=== PATIENT | male | born 1990 | race African-American/Black ===

== ENCOUNTER 2022-09-16 00:06 | Inpatient (IN) | payer MEDICAID ==
[~2022-09-16] VITALS: Ht 180.3 cm; Wt 76.5 kg
[2022-09-16] MEDS ORDERED: LORazepam 2 MG TABLET PO PRN (01:00)
[2022-09-16] MEDS ORDERED: ZOLPIDEM TARTRATE 10 MG TABLET PO PRN (01:00)
[2022-09-16] MEDS ORDERED: HALOPERIDOL 5 MG TABLET PO PRN (01:00)
[2022-09-16 04:22] VITALS: BP 121/85
[2022-09-16] MEDS ORDERED: PNEUMOCOCCAL VACCINE POLYVALENT 0.5 ML VIAL [PPSV23] IM. ONE (05:15)
[2022-09-16 08:10] VITALS: BP 117/64
[2022-09-16 20:27] VITALS: BP 120/67
[2022-09-17 08:36] VITALS: BP 108/69
[2022-09-17] MEDS ORDERED: MAGNESIUM HYDROXIDE SUSPENSION 30 ML UDCUP PO PRN (15:00)
[2022-09-17] MEDS ORDERED: NALTREXONE HCL 50 MG TABLET PO ONE (15:00)
[2022-09-17] MEDS ORDERED: PROMETHAZINE HCL 25 MG TABLET PO PRN ×2 (15:00)
[2022-09-17] MEDS ORDERED: PARoxetine HCL 20 MG TABLET PO ONE (15:00)
[2022-09-17] MEDS ORDERED: QUEtiapine FUMARATE 25 MG TABLET PO ONE (15:00)
[2022-09-17] MEDS ORDERED: TUBERCULIN, PURIFIED PROTEIN DERIVATIVE 5 TU/0.1 ML SYRINGE ID ONE (15:00)
[2022-09-17] MEDS ORDERED: ACETAMINOPHEN 325 MG TABLET PO PRN (15:00)
[2022-09-17] MEDS ORDERED: HydrOXYzine PAMOATE 50 MG CAPSULE PO PRN (15:00)
[2022-09-17] MEDS ORDERED: MAG HYDROX/AL HYDROX/SIMETH ES 30 ML SUSPENSION UDCUP PO PRN (15:00)
[2022-09-17] MEDS ORDERED: LOPERAMIDE HCL 2 MG CAPSULE PO PRN (15:00)
[2022-09-17] MEDS ORDERED: GuaiFENesin/D-METHORPHAN [SUGAR-FREE] 200-20MG/10 ML SYRUP UDCUP PO PRN (15:00)
[2022-09-17] MEDS: QUEtiapine FUMARATE 25 MG TABLET PO SCH (16:09)
[2022-09-17] MEDS: THIAMINE 100 MG TABLET PO SCH (16:09)
[2022-09-17 20:11] VITALS: BP 118/79
[2022-09-17] MEDS: MELATONIN 5 MG TABLET PO SCH (20:45)
[2022-09-17] MEDS: TraZODone HCL 100 MG TABLET PO SCH (20:45)
[2022-09-17] MEDS ORDERED: QUEtiapine FUMARATE 100 MG TABLET PO SCH (21:00)
[2022-09-18 08:09] VITALS: BP 132/76
[2022-09-18] MEDS: OMEGA-3/DHA/EPA/FISH OIL 1,000 MG CAPSULE PO SCH (09:23)
[2022-09-18] MEDS: FOLIC ACID 1 MG TABLET PO SCH (09:24)
[2022-09-18] MEDS: THIAMINE 100 MG TABLET PO SCH ×2 (09:24→16:37)
[2022-09-18] MEDS: MULTIVITAMINS WITH MINERALS, THERAPEUTIC TABLET PO SCH (09:24)
[2022-09-18] MEDS: PARoxetine HCL 20 MG TABLET PO SCH (09:24)
[2022-09-18] MEDS: NALTREXONE HCL 50 MG TABLET PO SCH (09:25)
[2022-09-18] MEDS: QUEtiapine FUMARATE 25 MG TABLET PO SCH ×3 (09:25→16:37)
[2022-09-18] MEDS: MELATONIN 5 MG TABLET PO SCH (20:03)
[2022-09-18] MEDS: TraZODone HCL 100 MG TABLET PO SCH (20:03)
[2022-09-18 20:25] VITALS: BP 120/72
[2022-09-18] MEDS ORDERED: QUEtiapine FUMARATE 200 MG TABLET PO SCH (21:00)
[2022-09-19 08:05] VITALS: BP 109/62
[2022-09-19] MEDS: THIAMINE 100 MG TABLET PO SCH ×2 (08:16→17:10)
[2022-09-19] MEDS: FOLIC ACID 1 MG TABLET PO SCH (08:16)
[2022-09-19] MEDS: OMEGA-3/DHA/EPA/FISH OIL 1,000 MG CAPSULE PO SCH (08:16)
[2022-09-19] MEDS: NALTREXONE HCL 50 MG TABLET PO SCH (08:16)
[2022-09-19] MEDS: MULTIVITAMINS WITH MINERALS, THERAPEUTIC TABLET PO SCH (08:16)
[2022-09-19] MEDS: PARoxetine HCL 20 MG TABLET PO SCH (08:16)
[2022-09-19] MEDS: QUEtiapine FUMARATE 25 MG TABLET PO SCH ×3 (08:17→17:10)
[2022-09-19] MEDS: TraZODone HCL 100 MG TABLET PO SCH (20:07)
[2022-09-19] MEDS: QUEtiapine FUMARATE 200 MG TABLET PO SCH (20:07)
[2022-09-19] MEDS: MELATONIN 5 MG TABLET PO SCH (20:07)
[2022-09-19 20:11] VITALS: BP 110/64
[2022-09-20] MEDS: PARoxetine HCL 10 MG TABLET PO SCH (08:03)
[2022-09-20] MEDS: QUEtiapine FUMARATE 25 MG TABLET PO SCH ×3 (08:03→16:43)
[2022-09-20] MEDS: THIAMINE 100 MG TABLET PO SCH ×2 (08:03→16:43)
[2022-09-20] MEDS: FOLIC ACID 1 MG TABLET PO SCH (08:03)
[2022-09-20] MEDS: OMEGA-3/DHA/EPA/FISH OIL 1,000 MG CAPSULE PO SCH (08:03)
[2022-09-20] MEDS: MULTIVITAMINS WITH MINERALS, THERAPEUTIC TABLET PO SCH (08:03)
[2022-09-20 08:04] VITALS: BP 105/66
[2022-09-20] MEDS: NALTREXONE HCL 50 MG TABLET PO SCH (08:05)
[2022-09-20] MEDS: MELATONIN 5 MG TABLET PO SCH (20:22)
[2022-09-20] MEDS: TraZODone HCL 100 MG TABLET PO SCH (20:22)
[2022-09-20] MEDS: QUEtiapine FUMARATE 200 MG TABLET PO SCH (20:22)
[2022-09-21 07:41] LABS: BASOPHILS % (AUTO) 0.9 % (0.0-2.0); EOSINOPHILS % (AUTO) 4.6 % (1.0-6.0); HEMATOCRIT 42.3 % (41-53); HEMOGLOBIN 14.2 g/dL (13.5-17.5); LYMPHOCYTES # (AUTO) 2.2 K/uL (1.0-4.8); LYMPHOCYTES % (AUTO) 57.5 % (22.0-44.0); MEAN CORPUSCULAR HEMOGLOBIN 30.8 pg (26.0-34.0); MEAN CORPUSCULAR HGB CONC 33.7 G/dL (31.0-37.0); MEAN CORPUSCULAR VOLUME 91 fL (80-100); MONOCYTES # (AUTO) 0.4 K/uL (0.1-1.0); MONOCYTES % (AUTO) 9.7 % (2.0-9.0); NEUTROPHILS # (AUTO) 1.1 K/uL (1.8-7.7); NEUTROPHILS % (AUTO) 27.3 % (40.0-70.0); PLATELET COUNT (AUTO) 203 K/uL (150-450); RED BLOOD CELL COUNT(AUTO) 4.63 MIL/uL (4.50-5.90)
[2022-09-21 07:50] LABS: HEMOGLOBIN A1C 5.1 % (3.8-5.6)
[2022-09-21] MEDS: OMEGA-3/DHA/EPA/FISH OIL 1,000 MG CAPSULE PO SCH (08:04)
[2022-09-21] MEDS: NALTREXONE HCL 50 MG TABLET PO SCH (08:04)
[2022-09-21] MEDS: MULTIVITAMINS WITH MINERALS, THERAPEUTIC TABLET PO SCH (08:04)
[2022-09-21] MEDS: THIAMINE 100 MG TABLET PO SCH ×2 (08:04→16:33)
[2022-09-21] MEDS: PARoxetine HCL 10 MG TABLET PO SCH (08:04)
[2022-09-21] MEDS: QUEtiapine FUMARATE 25 MG TABLET PO SCH ×3 (08:04→16:33)
[2022-09-21] MEDS: FOLIC ACID 1 MG TABLET PO SCH (08:04)
[2022-09-21 08:05] VITALS: BP 102/63
[2022-09-21 08:10] LABS: ALANINE AMINOTRANSFERASE 37 U/L (12-78); ALBUMIN 3.5 g/dL (3.4-5.0); ALKALINE PHOSPHATASE 37 U/L (46-116); ANION GAP 4 mmol/L (8-16); ASPARTATE AMINOTRANSFERASE 21 U/L (15-37); BILIRUBIN,TOTAL 0.1 mg/dL (0.1-1.0); CALCIUM, TOTAL 8.9 mg/dL (8.8-10.5); CARBON DIOXIDE 31 mmol/L (22-29); CHLORIDE 105 mmol/L (98-107); CHOL/HDL RATIO 3.6 (4.2-7.3); CHOLESTEROL 160 mg/dL (131-200); CREATININE 1.04 mg/dL (0.60-1.30); FREE T4 (FREE THYROXINE) 0.58 ng/dL (0.76-1.46); GLOMERULAR FILTR. RATE CALC > 60 mL/min (>60); GLUCOSE,RANDOM 86 mg/dL (70-110); HDL CHOLESTEROL 44 mg/dL (40-60); LDL CHOL (CALC.) 98 mg/dL (0-130); POTASSIUM 4.5 mmol/L (3.5-5.1); SODIUM SERUM 140 mmol/L (136-145); THYROID STIMULATING HORMONE 0.86 uIU/mL (0.36-3.74); TOTAL PROTEIN, SERUM 6.4 g/dL (6.4-8.2); TRIGLYCERIDES 92 mg/dL (15-150); UREA NITROGEN, BLOOD 12 mg/dL (7-18)
[2022-09-21 11:15] LABS: GLUCOMETER DEV NAME(LOC) POC.BV
[2022-09-21 20:04] VITALS: BP 109/63
[2022-09-21] MEDS: MELATONIN 5 MG TABLET PO SCH (20:15)
[2022-09-21] MEDS: QUEtiapine FUMARATE 200 MG TABLET PO SCH (20:15)
[2022-09-21] MEDS: TraZODone HCL 100 MG TABLET PO SCH (20:15)
[2022-09-22 08:14] VITALS: BP 109/63
[2022-09-22] MEDS: OMEGA-3/DHA/EPA/FISH OIL 1,000 MG CAPSULE PO SCH (08:56)
[2022-09-22] MEDS: FOLIC ACID 1 MG TABLET PO SCH (08:56)
[2022-09-22] MEDS: NALTREXONE HCL 50 MG TABLET PO SCH (08:56)
[2022-09-22] MEDS: MULTIVITAMINS WITH MINERALS, THERAPEUTIC TABLET PO SCH (08:56)
[2022-09-22] MEDS: THIAMINE 100 MG TABLET PO SCH ×2 (08:57→16:27)
[2022-09-22] MEDS: QUEtiapine FUMARATE 25 MG TABLET PO SCH ×3 (08:57→16:27)
[2022-09-22] MEDS: PARoxetine HCL 10 MG TABLET PO SCH (08:57)
[2022-09-22 20:12] VITALS: BP 100/63
[2022-09-22] MEDS: TraZODone HCL 100 MG TABLET PO SCH (20:29)
[2022-09-22] MEDS: MELATONIN 5 MG TABLET PO SCH (20:29)
[2022-09-22] MEDS ORDERED: QUEtiapine FUMARATE 300 MG TABLET PO SCH (21:00)
[2022-09-23 08:20] VITALS: BP 107/72
[2022-09-23] MEDS ORDERED: PARoxetine HCL 20 MG TABLET PO SCH (09:00)
[2022-09-23] MEDS: MULTIVITAMINS WITH MINERALS, THERAPEUTIC TABLET PO SCH (09:25)
[2022-09-23] MEDS: THIAMINE 100 MG TABLET PO SCH ×2 (09:25→21:00)
[2022-09-23] MEDS: OMEGA-3/DHA/EPA/FISH OIL 1,000 MG CAPSULE PO SCH (09:25)
[2022-09-23] MEDS: FOLIC ACID 1 MG TABLET PO SCH ×2 (09:25→21:00)
[2022-09-23] MEDS: NALTREXONE HCL 50 MG TABLET PO SCH ×2 (09:25→21:00)
[2022-09-23] MEDS: QUEtiapine FUMARATE 25 MG TABLET PO SCH ×2 (09:25→13:26)
[2022-09-23 20:18] VITALS: BP 116/75
[2022-09-23] MEDS: PARoxetine HCL 20 MG TABLET PO SCH (21:00)
[2022-09-23] MEDS ORDERED: MULTIVITAMINS WITH MINERALS, THERAPEUTIC TABLET PO SCH (21:00)
[2022-09-23] MEDS ORDERED: OMEGA-3/DHA/EPA/FISH OIL 1,000 MG CAPSULE PO SCH (21:00)
[2022-09-23] MEDS: QUEtiapine FUMARATE 200 MG TABLET PO SCH (21:17)
[2022-09-23] MEDS: MELATONIN 5 MG TABLET PO SCH (21:17)
[2022-09-23] MEDS: TraZODone HCL 100 MG TABLET PO SCH (21:17)
[2022-09-24 08:06] VITALS: BP 104/61
[2022-09-24 20:17] VITALS: BP 119/65
[2022-09-24] MEDS: NALTREXONE HCL 50 MG TABLET PO SCH (20:32)
[2022-09-24] MEDS: QUEtiapine FUMARATE 200 MG TABLET PO SCH (20:32)
[2022-09-24] MEDS: FOLIC ACID 1 MG TABLET PO SCH (20:32)
[2022-09-24] MEDS: PARoxetine HCL 20 MG TABLET PO SCH (20:33)
[2022-09-24] MEDS: THIAMINE 100 MG TABLET PO SCH (20:33)
[2022-09-24] MEDS: TraZODone HCL 100 MG TABLET PO SCH (20:34)
[2022-09-25 08:09] VITALS: BP 109/62
[2022-09-25 20:12] VITALS: BP 114/72
[2022-09-25] MEDS: PARoxetine HCL 20 MG TABLET PO SCH (21:18)
[2022-09-25] MEDS: QUEtiapine FUMARATE 300 MG TABLET PO SCH (21:18)
[2022-09-25] MEDS: FOLIC ACID 1 MG TABLET PO SCH (21:18)
[2022-09-25] MEDS: NALTREXONE HCL 50 MG TABLET PO SCH (21:18)
[2022-09-25] MEDS: THIAMINE 100 MG TABLET PO SCH (21:19)
[2022-09-26 08:03] VITALS: BP 115/68
[2022-09-26 20:01] VITALS: BP 116/60
[2022-09-26] MEDS: FOLIC ACID 1 MG TABLET PO SCH (20:27)
[2022-09-26] MEDS: PARoxetine HCL 20 MG TABLET PO SCH (20:27)
[2022-09-26] MEDS: THIAMINE 100 MG TABLET PO SCH (20:27)
[2022-09-26] MEDS: QUEtiapine FUMARATE 300 MG TABLET PO SCH (20:27)
[2022-09-26] MEDS: NALTREXONE HCL 50 MG TABLET PO SCH (20:27)
[2022-09-26] MEDS ORDERED: GABAPENTIN 300 MG CAPSULE PO PRN (20:30)
[2022-09-26] MEDS ORDERED: ESZOPICLONE 3 MG TABLET PO PRN (20:30)
[2022-09-26] MEDS ORDERED: QUEtiapine FUMARATE 200 MG TABLET PO SCH (21:00)
[2022-09-26] MEDS ORDERED: PARoxetine HCL 20 MG TABLET PO SCH (21:00)
[2022-09-27 08:28] VITALS: BP 111/70
[2022-09-27] MEDS: QUEtiapine FUMARATE 200 MG TABLET PO SCH (20:07)
[2022-09-27] MEDS: THIAMINE 100 MG TABLET PO SCH (20:07)
[2022-09-27] MEDS: NALTREXONE HCL 50 MG TABLET PO SCH (20:07)
[2022-09-27] MEDS: PARoxetine HCL 20 MG TABLET PO SCH (20:07)
[2022-09-27 20:12] VITALS: BP 109/75
[2022-09-28 08:32] VITALS: BP 140/80
[2022-09-28] MEDS ORDERED: NALT50TA PO (10:54)
[2022-09-28] MEDS ORDERED: PARO-37 PO (10:54)
[2022-09-28] MEDS ORDERED: QUET200T30 PO (10:54)
[2022-09-28 18:46] LABS: GLUCOMETER DEV NAME(LOC) POC.BV
[2022-09-28 20:02] VITALS: BP 134/77
[2022-09-28] MEDS: NALTREXONE HCL 50 MG TABLET PO SCH (20:26)
[2022-09-28] MEDS: QUEtiapine FUMARATE 200 MG TABLET PO SCH (20:27)
[2022-09-28] MEDS: THIAMINE 100 MG TABLET PO SCH (20:27)
[2022-09-28] MEDS: PARoxetine HCL 20 MG TABLET PO SCH (20:27)
== END 2022-09-29 09:30 | disposition home or self-care (01) | DRG 751 ==
LOC: B2S 03:46
PROVIDERS: ADMIT Psychiatry & Neurology Psychiatry; ATTEND Psychiatry & Neurology Psychiatry
DX: F33.2 Major depressive disorder, recurrent severe without psychotic features (principal); G93.41 Metabolic encephalopathy; F17.200 Nicotine dependence, unspecified, uncomplicated; J44.9 Chronic obstructive pulmonary disease, unspecified; Z20.822 Contact with and (suspected) exposure to COVID-19; Z55.9 Problems related to education and literacy, unspecified; Z59.9 Problem related to housing and economic circumstances, unspecified; Z63.9 Problem related to primary support group, unspecified; Z65.3 Problems related to other legal circumstances; Z79.899 Other long term (current) drug therapy
CPT/HCPCS: 80053; 80061; 83036; 84439; 84443; 85025; 86592; Q9967

== ENCOUNTER 2022-11-04 23:05 | Inpatient (IN) | payer MEDICAID ==
[~2022-11-04] VITALS: Ht 167.6 cm; Wt 77.4 kg
[~2022-11-04 23:05] MED LIST: NALT50TA PO; PARO-37 PO; QUET200T30 PO
[2022-11-05] MEDS ORDERED: ZOLPIDEM TARTRATE 10 MG TABLET PO PRN (00:15)
[2022-11-05] MEDS ORDERED: HALOPERIDOL 5 MG TABLET PO PRN (00:15)
[2022-11-05] MEDS ORDERED: LORazepam 2 MG TABLET PO PRN (00:15)
[2022-11-05 01:56] VITALS: BP 136/73
[2022-11-05] MEDS ORDERED: ONDANSETRON HCL 4 MG TABLET PO PRN (06:45)
[2022-11-05] MEDS ORDERED: GuaiFENesin/D-METHORPHAN [SUGAR-FREE] 200-20MG/10 ML SYRUP UDCUP PO PRN (06:45)
[2022-11-05] MEDS ORDERED: NICOTINE 14 MG/24 HOUR PATCH TD PRN (06:45)
[2022-11-05] MEDS ORDERED: PETROLATUM,WHITE 28 GM JELLY TP PRN (06:45)
[2022-11-05] MEDS ORDERED: ALBUTEROL SULFATE HFA 90 MCG/PUFF 8 GM INHALER IH PRN (06:45)
[2022-11-05] MEDS ORDERED: DOCUSATE SODIUM 100 MG CAPSULE PO PRN (06:45)
[2022-11-05] MEDS ORDERED: IBUPROFEN 400 MG TABLET PO PRN (06:45)
[2022-11-05] MEDS ORDERED: CloNIDine HCL 0.1 MG TABLET PO PRN (06:45)
[2022-11-05] MEDS ORDERED: MAGNESIUM HYDROXIDE SUSPENSION 30 ML UDCUP PO PRN (06:45)
[2022-11-05] MEDS ORDERED: MAG HYDROX/AL HYDROX/SIMETH ES 30 ML SUSPENSION UDCUP PO PRN (06:45)
[2022-11-05] MEDS ORDERED: ACETAMINOPHEN 325 MG TABLET PO PRN (06:45)
[2022-11-05] MEDS ORDERED: LOPERAMIDE HCL 2 MG CAPSULE PO PRN (06:45)
[2022-11-05 18:12] LABS: GLUCOMETER DEV NAME(LOC) POC.BV
== END 2022-11-05 12:41 | disposition left against medical advice (07) | DRG 751 ==
LOC: B2S 11-05 00:06
PROVIDERS: ADMIT Psychiatry & Neurology Child & Adolescent Psychiatry; ATTEND Psychiatry & Neurology Child & Adolescent Psychiatry
DX: F33.2 Major depressive disorder, recurrent severe without psychotic features (principal); R45.851 Suicidal ideations; Z20.822 Contact with and (suspected) exposure to COVID-19; Z53.29 Procedure and treatment not carried out because of patient's decision for other reasons; F10.10 Alcohol abuse, uncomplicated; F19.10 Other psychoactive substance abuse, uncomplicated; F20.9 Schizophrenia, unspecified; F41.9 Anxiety disorder, unspecified; G47.00 Insomnia, unspecified; Z79.899 Other long term (current) drug therapy